=== PATIENT | male | born 1940 | race Caucasian/White ===

== ENCOUNTER 2016-12-12 13:17 | Emergency (ER) | payer MEDICARE, OTHER ==
--- NOTE | 2016-12-12 14:11 | ER NURSING DOCUMENTATION ---
Nurse's Notes [facility] Name:Sammy Sanchez Age:76 yrs Sex:Male :1940 Arrival Date:12/12/2016 Time:13:17 Bed6 Private MD: Diagnosis:Acute Low Back Pain Presentation: 12/12 13:21 Acuity: RADHA 4 tg 13:21 Acuity: RADHA 3 sc1 13:32 Presenting complaint: Patient states: c/o right sided low back pain radiating around to sc1 groin. States he was getting out of a car and didn't think he twisted his back abnormally. Transition of care: Home. Notified ED Physician of patient's arrival and CC Dr. George notified. 13:32 Method Of Arrival: Private Vehicle [facility] Triage Assessment: 13:38 General: Appears in no apparent distress, uncomfortable, well developed, well sc1 nourished, well groomed, Behavior is cooperative, pleasant. Pain: Complains of pain in right low back. Historical: - Allergies: Morphine; - Home Meds: 1. Levoxyl Oral 2. Clonazepam Oral - PMHx: HYPOTHYROIDISM; - PSHx: Shoulder Replacement; - Tetanus: < 10 years. - Ebola Screening: : Patient negative for fever greater than or equal to 101.5 degrees Fahrenheit, and additional compatible Ebola Virus Disease symptoms. Patient denies exposure to infectious person. Patient denies travel to an Ebola-affected area in the 21 days before illness onset. No symptoms or risks identified at this time. . - Immunization history: Pneumococcal vaccine is up to date, Flu Vaccine < 1 year. - Social history: Smoking status: Patient states former smoker of tobacco. Patient/guardian denies using alcohol, street drugs, IV drugs, marijuana. Screenin:40 Infectious Disease Risk None. Abuse screen: Denies threats or abuse. Nutritional sc1 screening: No deficits noted. Vital Signs: 13:39 BP 152 / 55; Pulse 54; Resp 16; Temp 98.3; Pulse Ox 96% on R/A; sc1 ED Course: 13:20 Patient arrived in ED. ama 13:21 Mj Cano DO is Private Physician. ama 13:22 Triage completed. tg 13:29 Sourav George MD is Attending Physician. sc 13:32 Zamudio, Ashly, RN is Primary Nurse. [facility] 13:40 Notified ED Physician of patient's arrival and chief complaint. Dr. George notified. tx1 Allergy Band Placed Arm band placed on Bed in low position Call Light in Reach Gowned HOB Elevated. Administered Medications: 14:00 Drug: Dilaudid 2 mg; Route: IM; Site: right gluteus; [facility] 14:10 Follow up: Response: No adverse reaction; Pain is decreased [facility] Outcome: 13:49 Discharge ordered by . tx 14:08 Discharged to home via wheelchair. [facility] 14:08 Condition: stable 14:08 Discharge instructions given to patient, family, Instructed on discharge instructions, follow up and referral plans. medication usage, Demonstrated understanding of instructions, medications, Prescriptions given X 1. 14:10 Patient left the ED. [facility] Signatures: Jack Mcgregor RN RN tg Campbell, Sandy, RN RN tx1 Sourav George MD MD sc Averdick, Andrew, Reg Reg ama
--- NOTE | 2016-12-12 14:11 | ER PHYSICIAN DOCUMENTATION ---
Physician Documentation [facility] Name:Sammy Sanchez Age:76 yrs Sex:Male :1940 Arrival Date:12/12/2016 Time:13:17 Bed6 Private MD: Sourav Grace Disposition: 12/12/16 13:49 Discharged to Home/Self Care. Impression: Acute Low Back Pain. - Condition is Good. - Discharge Instructions: BACK PAIN (Acute or Chronic), BACK CARE TIPS, BACK EXERCISES, Lumbar. - Prescriptions for Hydrocodone- Acetaminophen 5-325 mg Oral Tablet - take 1 tablet by ORAL route every 6 hours As needed; 20 tablet. - Medical Reconciliation form form. - Follow up: Private Physician; When: 7 - 10 days; Reason: Recheck today's complaints, Continuance of care. - Problem is new. - Symptoms have improved. HPI: 12/12 13:46 This 76 yrs old Male presents to ER via Private Vehicle with complaints of sc Back Injury. 13:46 The patient presents with pain that is acute, and an injury. The symptoms are located sc in the low back. Onset: The symptoms/episode began/occurred this morning. The pain does not radiate. Associated signs and symptoms: The patient has no apparent associated signs or symptoms. The problem was sustained outdoors, from twisting. Historical: - Allergies: Morphine; - Home Meds: 1. Levoxyl Oral 2. Clonazepam Oral - PMHx: HYPOTHYROIDISM; - PSHx: Shoulder Replacement; - Tetanus: < 10 years. - Ebola Screening: : Patient negative for fever greater than or equal to 101.5 degrees Fahrenheit, and additional compatible Ebola Virus Disease symptoms. Patient denies exposure to infectious person. Patient denies travel to an Ebola-affected area in the 21 days before illness onset. No symptoms or risks identified at this time. . - Immunization history: Pneumococcal vaccine is up to date, Flu Vaccine < 1 year. - Social history: Smoking status: Patient states former smoker of tobacco. Patient/guardian denies using alcohol, street drugs, IV drugs, marijuana. ROS: 13:47 Constitutional: Negative for fever, chills, and weight loss. sc Eyes: Negative for injury, pain, redness, and discharge. ENT: Negative for injury, pain, and discharge. Neck: Negative for injury, pain, and swelling. Cardiovascular: Negative for chest pain, palpitations, and edema. Respiratory: Negative for shortness of breath, cough, wheezing, and pleuritic chest pain. 13:47 Skin: Negative for injury, rash, and discoloration. sc 13:47 Back: Positive for injury or acute deformity, pain at rest, pain with movement, Negative for radiated pain. Exam: Constitutional: This is a well developed, well nourished patient who is awake, alert, and in no acute distress. Head/Face: Normocephalic, atraumatic. Eyes: Pupils equal round and reactive to light, extra-ocular motions intact. Lids and lashes normal. Conjunctiva and sclera are non-icteric and not injected. Cornea within normal limits. Periorbital areas with no swelling, redness, or edema. ENT: Nares patent. No nasal discharge, no septal abnormalities noted. Tympanic membranes are normal and external auditory canals are clear. Oropharynx with no redness, swelling, or masses, exudates, or evidence of obstruction, uvula midline. Mucous membranes moist. Neck: Trachea midline, no thyromegaly or masses palpated, and no cervical lymphadenopathy. Supple, full range of motion without nuchal rigidity, or vertebral point tenderness. No meningismus. Chest/axilla: Normal chest wall appearance and motion. Nontender with no deformity. No lesions are appreciated. Cardiovascular: Regular rate and rhythm with a normal S1 and S2. No gallops, murmurs, or rubs. Normal PMI, no JVD. No pulse deficits. Respiratory: Lungs have equal breath sounds bilaterally, clear to auscultation and percussion. No rales, rhonchi or wheezes noted. No increased work of breathing, no retractions or nasal flaring. 13:47 Abdomen/GI: Soft, non-tender, with normal bowel sounds. No distension or tympany. No sc guarding or rebound. No evidence of tenderness throughout. 13:47 Back: pain, that is moderate, ROM is painful, normal spinal alignment noted, CVA tenderness, is absent, vertebral tenderness, is not appreciated, muscle spasm, is appreciated in the right low back, Straight leg raises: of both lower extremities does not illicit pain. 13:50 Neuro: Sensation: is normal, no obvious gross deficits, Gait: is steady, Deep tendon sc reflexes are 2+ (normal) in the right low back. Vital Signs: 13:39 BP 152 / 55; Pulse 54; Resp 16; Temp 98.3; Pulse Ox 96% on R/A; sc1 MDM: 13:29 Patient medically screened. mi 13:48 Differential diagnosis: Fracture Osteoarthritis Scoliosis. Data reviewed: vital signs, mi nurses notes, and as a result, I will continue to observe the patient, prescribe pain medication, Dilaudid. Counseling: I had a detailed discussion with the patient and/or guardian regarding: the historical points, exam findings, and any diagnostic results supporting the discharge/admit diagnosis, the need for outpatient follow up, to return to the emergency department if symptoms worsen or persist or if there are any questions or concerns that arise at home. Dispensed Medications: 14:00 Drug: Dilaudid 2 mg; Route: IM; Site: right gluteus; mi1 14:10 Follow up: Response: No adverse reaction; Pain is decreased mi1 Signatures: Ashly Zamudio RN RN mi1 Sourav George MD MD mi
== END 2016-12-12 14:11 | disposition home or self-care (01) ==
LOC: ER 13:17
DX: M54.5 Low back pain (principal); Z79.899 Other long term (current) drug therapy
CPT/HCPCS: 96372; 99282; 99283; J1170